=== PATIENT | female | born 1975 | race Caucasian/White ===

== ENCOUNTER 2023-05-05 10:56 | Outpatient (AMB) | payer MEDICAID, SELFPAY ==
--- NOTE | 2023-05-05 10:59 | MHC.OFFVIS ---
Intake Vital Signs 05/05/23 11:01 Height 5 ft 3 in BMI Reason not done Patient refused/unable BP 112/64 Blood Pressure Location Lt brachial Position Sitting Pulse 76 Intake Visit Reasons: [employer]/Joslyn Reich/ preop bariatrics. family hx Intake Note: NPV w/ EKG Table Games Dual Rate Supervisor Required: No Accompanied by: Self / Same As Patient Allergies Z Kendell Adverse Reaction (Intermediate, Uncoded 05/05/23 11:02) Skin Flare Medication List - Last Reconciled 05/05/23 by Pablo Smith MD cholecalciferol (vitamin D3) 10 mcg PO DAILY cyanocobalamin (vitamin B-12) 1,000 mcg PO DAILY meloxicam 15 mg PO DAILY HPI HPI Comments History of Present Illness Details Collette is here for consultation regarding preoperative stratification for bariatric surgery. There was a concern for abnormal EKG done at outside hospital and hence she is referred. She does not have any known cardiac issues. No history of any coronary disease, myocardial infarction or cardiomyopathy. She does not have any cardiac symptoms either. No angina or in fact anything cardiac sounding. [facility] Medical History (Updated 05/05/23 @ 11:36 by Pablo Smith MD) Obesity Surgical History (Updated 05/05/23 @ 11:04 by Amparo Tirado) Hx of tubal ligation Family History (Updated 05/05/23 @ 11:04 by Amparo Tirado) Father A-fib Aortic valve replaced Social History (Updated 05/05/23 @ 11:04 by Amparo Tirado) Alcohol intake: current Alcohol intake frequency: holidays/special occasions only Patient Tobacco Use Status: Former Tobacco user Quit Date: 2013 Review of Systems Const Denies weakness ENT Denies dizziness Card Denies chest pain, Denies chest pain with activity, Denies syncope, Denies rapid heart rate, Denies pedal edema, Denies edema, Denies leg edema, Denies lightheadedness, Denies palpitations, Denies dyspnea, Denies dyspnea on exertion and Denies orthopnea Resp Denies cough, Denies dyspnea and Denies dyspnea on exertion GI Denies hematochezia and Denies change in stool character Musc Denies abnormal gait, Denies muscle cramps, Denies muscle weakness, Denies numbness, Denies radiating pain into limb and Denies tingling Neuro Denies abnormal gait, Denies dizziness, Denies syncope, Denies numbness, Denies tingling and Denies weakness Endo Denies palpitations Physical Exam Vital Signs: Last Vital Signs Pulse 76 05/05/23 11:01 BP 112/64 05/05/23 11:01 Const General: comfortable and no acute distress Orientation/consciousness: patient oriented x3 HEENT Other: Unremarkable Head: Yes normal to inspection Neck Neck: Yes normal visual inspection Chest Chest palpation & inspection: normal inspection of the chest Resp Auscultation: clear to auscultation bilaterally Cardio Palpation: normal PMI Heart sounds: S1 normal heart sound present, S2 normal heart sound present, no gallops, Murmur heart sound present systolic I/ and at the base and no rubs GI Palpation (GI): Soft to palpation Back/Spine/Pelvis Other: unremarkable Skin General skin exam: no rashes or lesions noted Neuro General: patient oriented x3 Extrem General: Yes normal to inspection Psych Mental Status: mental status grossly normal Office Procedures EKG Details: EKG with sinus rhythm at 76/Min; no significant ST-T changes; normal GA and corrected QT. Possible right atrial enlargement. [id number], Complete Assessment & Plan Assessment & Plan (1) Preoperative cardiovascular examination: Code(s): Z01.810 - Encounter for preprocedural cardiovascular examination (2) Obesity: Code(s): E66.9 - Obesity, unspecified Qualifiers: Obesity type: due to excess calories Plan EKG from outside hospital shows sinus rhythm with poor R-wave progression in the anterior leads most likely from her body habitus. Repeat EKG today is also grossly unremarkable. Clinically, she has got absolutely no cardiac symptoms. No prior cardiac history. Hence may proceed with planned bariatric surgery without any workup. Low cardiac risk. Coding Level of Care Code New Pt Level 3 (06946) Diagnoses Preoperative cardiovascular examination Z01.810 Obesity E66.9 Obesity type: due to excess calories CPT Codes EKG - CPT: 08261-[id number], Complete ([id number])
[2023-05-05 11:01] VITALS: BP 112/64; PULSE 76
== END 2023-05-05 11:30 | disposition home or self-care (01) ==
PROVIDERS: PCP Physician Assistant; Visit Provider Internal Medicine
DX: Z01.810 Encounter for preprocedural cardiovascular examination (principal); E66.9 Obesity, unspecified
CPT/HCPCS: 93010; 99203

== ENCOUNTER → 2023-05-05 10:56 | Outpatient (BNVA) | payer MEDICAID, SELFPAY | PROVIDERS: PCP Physician Assistant; Visit Provider Internal Medicine | DX: Z01.810 Encounter for preprocedural cardiovascular examination (principal); E66.9 Obesity, unspecified | CPT/HCPCS: 93005; 99202 ==